=== PATIENT | male | born 1995 | race African-American/Black ===

== ENCOUNTER 2019-01-19 16:46 | Emergency (ER) | payer MEDICAID ==
[~2019-01-19] VITALS: Ht 185.4 cm; Wt 62.7 kg
[~2019-01-19 16:46] MED LIST: NORCO 7.5-3251 EACH PO; PERCOCET 10/3251 TA1 PO; PHENERGAN25 M1 PO; STOOL SOFTENER250 MG PO
[2019-01-19 16:55] VITALS: Ht 185.4 cm; Wt 62.7 kg
[2019-01-19 18:47] LABS: BASOPHILS 0.2 % (0-2); EOSINOPHILS 0.9 % (0-7); HEMATOCRIT 48.7 % (42.0-54.0); HEMOGLOBIN 17.1 g/dL (13.5-17.5); IMMATURE GRANULOCYTES 0.3 % (0-5); LYMPHOCYTES 9.7 % (15-50); MCH 31.6 pg (26.0-34.0); MCHC 35.1 g/dL (31.0-37.0); MEAN PLATELET VOLUME 11.5 fL (7.4-10.4); MONOCYTES 9.9 % (2-11); PLATELET COUNT 205 10x3/uL (130-400); RBC 5.41 10x6/uL (4.20-6.10); RDW 12.3 % (11.5-14.5); WBC 15.8 10x3/uL (4.8-10.8)
[2019-01-19 19:08] LABS: ALBUMIN 4.8 g/dL (3.4-5.0); ANION GAP 15.5 mmol/L (8-16); BILIRUBIN - TOTAL 3.76 mg/dL (0.2-1.3); CALCIUM 10.1 mg/dL (8.5-10.1); CARBON DIOXIDE 27.1 mmol/L (21.0-32.0); CREATININE - SERUM 1.3 mg/dL (0.6-1.3); POTASSIUM - SERUM 3.6 mmol/L (3.5-5.1); PROTEIN - SERUM 9.1 g/dL (6.4-8.2)
[2019-01-19] MEDS ORDERED: ALBUTEROL SULF8.5 GM INH (20:09)
[2019-01-19] MEDS ORDERED: VIBRAMYCIN 100100 MG PO (20:09)
[2019-01-20 00:56] VITALS: BP 110/69
== END 2019-01-19 21:51 | disposition home or self-care (01) ==
LOC: D.ER 16:46
PROVIDERS: Family Medicine
DX: R50.9 Fever, unspecified (principal); R05 Cough